=== PATIENT | male | born 2005 | race African-American/Black ===

== ENCOUNTER 2024-10-14 21:45 | Emergency (ER) | payer MEDICAID, OTHER | END 2024-10-15 01:00 | disposition left against medical advice (07) | LOC: ER 21:52 | DX: S09.8XXA Other specified injuries of head, initial encounter (principal); Z53.21 Procedure and treatment not carried out due to patient leaving prior to being seen by health care provider; X58.XXXA Exposure to other specified factors, initial encounter; Y93.89 Activity, other specified; Y92.89 Other specified places as the place of occurrence of the external cause; Y99.8 Other external cause status ==